=== PATIENT | male | born 1940 | race Caucasian/White ===

== ENCOUNTER 2021-12-21 02:30 | Emergency (ER) | payer MEDICARE, BC, SELFPAY ==
--- NOTE | 2021-12-21 02:38 | DI.RAD.S_ITS ---
PROCEDURE: XR KNEE LT 3V INDICATIONS: left knee snapped when someone fell on pt TECHNIQUE: 3 views of the knee were acquired. COMPARISON: None. FINDINGS: Bones: Possible nondisplaced medial tibial plateau fracture. Generalized decrease in osseous mineralization noted. Atherosclerotic vascular calcification noted Soft tissues: Moderate joint effusion. No suspicious soft tissue calcifications. IMPRESSION: Probable medial tibial plateau fracture can be confirmed with CT Approved by: Abel Ac M.D. on 12/21/2021 at 6:36
[2021-12-21 02:39] VITALS: BP 163/82; PULSE 69; RESP 17; TEMP 36.6; O2SAT 93; BMI 27.1
--- NOTE | 2021-12-21 02:56 | ED.LOWEXIN ---
HPI - Extremity Injury (Lower) General Chief Complaint: Extremity Injury, Lower Stated Complaint: LLE Pain Time Seen by Provider: 12/21/21 02:43 Source: patient and EMS Mode of arrival: EMS History of Present Illness HPI Narrative: 81-year-old gentleman with history of atrial fibrillation currently on flecainide, diltiazem Eliquis, hyperlipidemia who is on a road trip with his is visiting from [place] on the way to a cruise to [place]. His started to fall he tried to catch her they both ended up on the floor and he felt a tearing/popping sensation in his left knee and noted immediate swelling. Are pain is minimal when he is not moving and excruciating when he tries to bear weight. He is neurovascularly intact. Review of Systems Review of Systems Narrative: Pertinent positive and negative findings as per HPI Remainder of review of systems is otherwise unremarkable for Constitutional: Fevers, chills, weakness ENT: No sore throat, neck pain, ear pain CV: Chest pain, palpitations, Respiratory: Cough, wheeze, dyspnea GI: Nausea, vomiting, diarrhea, : Dysuria, hematuria, Patient History Medical History (Updated 12/21/21 @ 03:47 by Nadeen Love MD) Hyperlipidemia Paroxysmal atrial fibrillation Social History Smoking Status: Former smoker Smoking Status: Former smoker alcohol intake frequency: 0-2 drinks per day Alcohol type: hard liquor Substance Use Type: does not use Exam Initial Vital Signs Initial Vital Signs: Vital Signs Temperature 98 F 12/21/21 02:39 Pulse Rate 69 12/21/21 02:39 Respiratory Rate 17 12/21/21 02:39 Blood Pressure 163/82 H 12/21/21 02:39 Pulse Oximetry 93 12/21/21 02:39 Oxygen Delivery Method 12/21/21 02:39 General: Alert appropriate in no acute distress Respiratory: Able to speak in full sentences, no obvious respiratory distress Skin: No obvious rashes, warm and dry Neurologic: Grossly intact no obvious asymmetries or abnormalities Psych: appropriate insight and affect, cooperative Extremity: Left knee with significant effusion, no bruising, no significant tenderness on exam. He is able to flex it to approximately 90? and extend it completely. ACL and PCL ligaments seem to be intact however there is quite a bit of laxity with both medial and lateral collateral ligaments. He is neurovascularly intact. Procedures Orthopedic Splinting/Casting left knee injury: Time of procedure: 03:48 Side: left Lower Extremity Injury Location: knee Lower Extremity Immobilizer: knee immobilizer Other Orthopedic Equipment: crutches Post splinting neuro exam: intact Post splinting vascular exam: intact Placed by: Provider Course Orders Ordered: ED Orders 12/21/21 02:38 XR knee LT 3V Stat Vital Signs Vital signs: Vital Signs - 8 hr 12/21/21 02:39 Temperature 98 F Pulse Rate 69 Respiratory Rate 17 Blood Pressure 163/82 H Pulse Oximetry 93 Oxygen Delivery Method Room Air MDM - Extremity Injury (Lower) Imaging Data X-ray knee: My Impression: Effusion but no acute bony injury MDM Narrative Medical decision making narrative: 81-year-old gentleman with acute injury to the left knee concern for both medial and collateral ligament strain if not out right rupture. Clearly has an effusion however with the lack of pain with palpation I am less concerned with hemarthrosis. He is placed in a long-leg knee immobilizer and given crutches. He declines pain medication at this time. He and his were planning to leave on a cruise for [place] in approximately 48 hours and are wondering if they will be able to follow through with this plan. Given the significant mobility impairment this is going to cause for him and knowing that she to is significantly mobility impaired due to orthopedic issues I suspect they are going to need to cancel their cruise. I encouraged them to see how tomorrow goes recognizing that cruises and cruise staff are very well prepared to help with orthopedically impaired clients. At this point they are for home discharge Discharge Plan Departure Patient Disposition: Home Clinical Impression: Knee effusion, Knee Injury Instructions: DI for Knee Sprain Activity Restrictions/Additional Instructions: Thank you for coming in [facility] I am sorry that you injured her knee. I am concerned that you may have torn either the medial collateral or lateral collateral ligaments or both. Please keep the knee immobilizer in place for stability and use the crutches to help with pain. You can use Tylenol if your having worsening pain and I would recommend ice to help with the swelling. Once you return home, you will need to follow-up with an orthopedic surgeon for further evaluation and definitive treatment of this injury. I wish you the best Stand Alone Forms: Work Release Note
== END 2021-12-21 04:13 | disposition home or self-care (01) ==
PROVIDERS: Emergency Provider Emergency Medicine
DX: S82.145A Nondisplaced bicondylar fracture of left tibia, initial encounter for closed fracture (principal); M25.462 Effusion, left knee; W18.30XA Fall on same level, unspecified, initial encounter
CPT/HCPCS: 29530; 73562; 99282; 99283